=== PATIENT | male | born 1980 | race Two or more races ===

== ENCOUNTER 2022-09-20 09:02 | Emergency (ER) | payer MEDICAID, OTHER ==
[~2022-09-20] VITALS: Ht 170.2 cm; Wt 77.1 kg
[2022-09-20 09:11] VITALS: BP 145/99
[2022-09-20] MEDS ORDERED: LIDOCAINE 1% HCL (LOCAL ANESTH.) INJ 20ML MDV IJ ONE (09:30)
== END 2022-09-20 10:11 | disposition home or self-care (01) ==
LOC: ER 09:02
DX: S01.01XA Laceration without foreign body of scalp, initial encounter (principal); W22.8XXA Striking against or struck by other objects, initial encounter; Y93.89 Activity, other specified; Y92.89 Other specified places as the place of occurrence of the external cause; Y99.8 Other external cause status
CPT/HCPCS: 12002